=== PATIENT | male | born 1980 | race Caucasian/White ===

== ENCOUNTER 2024-09-02 09:02 | Day surgery (SDC) | payer BC ==
[~2024-09-02 09:02] MED LIST: Sodium Chloride 0.9% 10 ML Syringe FLUSH PRN; Sodium Chloride 0.9% 10 ML Syringe FLUSH SCH
[2024-09-02] MEDS ORDERED: Propofol 200 MG/20 ML SDV ONE (09:23)
[2024-09-02] MEDS ORDERED: dexmedeTOMIDine HCl 200 MCG/2 ML SDV ONE (09:23)
[2024-09-02] MEDS ORDERED: Lidocaine 1% 4 ML ONE (09:23)
[2024-09-02] MEDS ORDERED: Lidocaine 1% PF 2 ML SDV ONE ×2 (09:23)
[2024-09-02] MEDS: Lactated Ringers 1,000 ML IV SCH (09:25)
== END 2024-09-02 11:30 | disposition home or self-care (01) ==
LOC: JD.SDS 09:02
PROVIDERS: ATTEND Surgery
DX: K63.5 Polyp of colon (principal); K62.1 Rectal polyp; K31.89 Other diseases of stomach and duodenum; K21.9 Gastro-esophageal reflux disease without esophagitis; E78.00 Pure hypercholesterolemia, unspecified; F17.210 Nicotine dependence, cigarettes, uncomplicated
CPT/HCPCS: 43239; 45380; J2704; J7120; 00813; J3490